=== PATIENT | female | born 1955 | race Two or more races ===

== ENCOUNTER 2016-06-23 09:14 | Outpatient (CLI) | payer MEDICARE, OTHER | END 2016-06-23 23:59 | disposition home health service (06) | LOC: WOU 09:14 | PROVIDERS: ATTEND Surgery | PROC: 0KBT0ZZ Excision of Left Lower Leg Muscle, Open Approach (ICD-10-PCS; principal; 2016-06-23) | DX: T79.A22S Traumatic compartment syndrome of left lower extremity, sequela (principal); I82.402 Acute embolism and thrombosis of unspecified deep veins of left lower extremity; V86.99XS Unspecified occupant of other special all-terrain or other off-road motor vehicle injured in nontraffic accident, sequela; Z86.19 Personal history of other infectious and parasitic diseases | CPT/HCPCS: 11043; 11046; A6253; A6402 ==

== ENCOUNTER 2016-06-30 14:04 | Outpatient (CLI) | payer MEDICARE, OTHER ==
[2016-06-30] MEDS ORDERED: CELLULOSE,OXIDIZED 1 EA PACK MC ONE (15:30)
== END 2016-06-30 23:59 | disposition home health service (06) ==
LOC: WOU 14:04
PROVIDERS: ATTEND Surgery
DX: T79.A22S Traumatic compartment syndrome of left lower extremity, sequela (principal); T81.89XA Other complications of procedures, not elsewhere classified, initial encounter; V86.99XS Unspecified occupant of other special all-terrain or other off-road motor vehicle injured in nontraffic accident, sequela; Z86.19 Personal history of other infectious and parasitic diseases; I82.402 Acute embolism and thrombosis of unspecified deep veins of left lower extremity; R60.0 Localized edema; M79.89 Other specified soft tissue disorders
CPT/HCPCS: 11043; 11046; A6253; A6402 ×2

== ENCOUNTER 2016-07-07 12:50 | Outpatient (CLI) | payer MEDICARE, OTHER | END 2016-07-07 23:59 | disposition home health service (06) | LOC: WOU 12:50 | PROVIDERS: ATTEND Surgery | DX: T81.89XA Other complications of procedures, not elsewhere classified, initial encounter (principal); T79.A22S Traumatic compartment syndrome of left lower extremity, sequela; V86.99XS Unspecified occupant of other special all-terrain or other off-road motor vehicle injured in nontraffic accident, sequela; Z86.19 Personal history of other infectious and parasitic diseases; I82.402 Acute embolism and thrombosis of unspecified deep veins of left lower extremity; R60.0 Localized edema; M79.89 Other specified soft tissue disorders; R05 Cough; T46.5X5A Adverse effect of other antihypertensive drugs, initial encounter; Y92.009 Unspecified place in unspecified non-institutional (private) residence as the place of occurrence of the external cause; I10 Essential (primary) hypertension | CPT/HCPCS: 11043; 11046; 97606; A6402; J3490 ==

== ENCOUNTER 2016-07-08 14:16 | Outpatient (CLI) | payer MEDICARE, OTHER | END 2016-07-08 23:59 | disposition home or self-care (01) | LOC: RAD 14:16 | PROVIDERS: ATTEND Surgery | DX: S81.802A Unspecified open wound, left lower leg, initial encounter (principal); X58.XXXA Exposure to other specified factors, initial encounter; Y93.89 Activity, other specified; Y92.89 Other specified places as the place of occurrence of the external cause; Y99.8 Other external cause status; I10 Essential (primary) hypertension; R05 Cough | CPT/HCPCS: 71020-TC ==

== ENCOUNTER 2016-07-13 12:36 | Outpatient (CLI) | payer MEDICARE, OTHER ==
[2016-07-13 13:07] LABS: BASOPHILS % (AUTO) 0.8 % (0.0-2.0); DIFF TOTAL % 100 %; EOSINOPHILS # (AUTO) 0.1 /CMM (0.0-0.7); EOSINOPHILS % (AUTO) 1.2 % (0.0-6.0); HEMATOCRIT 32 % (33-45); HEMOGLOBIN 10.7 g/dL (11.5-14.8); MEAN CORPUSCULAR HEMOGLOBIN 30 PG (26.0-33.0); MEAN CORPUSCULAR HGB CONC 33 g/dl (31.0-36.0); MEAN CORPUSCULAR VOLUME 92 fL (82-100); MONOCYTES # (AUTO) 0.7 /CMM (0.1-1.30); MONOCYTES % (AUTO) 14.4 % (2.0-12.0); NEUTROPHILS # (AUTO) 3.1 /CMM (1.8-8.9); NEUTROPHILS % (AUTO) 62.6 % (43.0-81.0); PLATELET COUNT (AUTO) 365 /CMM (150-450); RED BLOOD CELL COUNT(AUTO) 3.52 MIL/uL (4.0-5.2)
[2016-07-13 13:33] LABS: INR 1.21 (0.87-1.13); PROTHROMBIN TIME 13.1 SECS (9.5-12.7)
[2016-07-14] MEDS ORDERED: BACITRACIN ZINC OINT (15 GM) 15 GM TUBE TP ONE (09:11)
[2016-07-14] MEDS ORDERED: HYDR-3326 PO (11:30)
[2016-07-14] MEDS ORDERED: DULO60CA45 PO (11:30)
[2016-07-14] MEDS ORDERED: GABA-534 PO (11:30)
[2016-07-14] MEDS ORDERED: PRAZ1CAP5 PO (11:30)
[2016-07-14] MEDS ORDERED: RIVA10TA PO (11:30)
[2016-07-14] MEDS ORDERED: AMLO5TAB2 PO (11:30)
== END 2016-07-13 23:59 | disposition home or self-care (01) ==
LOC: LAB 12:36
PROVIDERS: ATTEND Surgery
DX: Z01.818 Encounter for other preprocedural examination (principal)
CPT/HCPCS: 36415; 85025-TC; 85730-TC

== ENCOUNTER 2016-07-13 13:03 | Outpatient (CLI) | payer MEDICARE, OTHER ==
[2016-07-14] MEDS ORDERED: PRAZ1CAP5 PO (11:30)
[2016-07-14] MEDS ORDERED: GABA-534 PO (11:30)
[2016-07-14] MEDS ORDERED: AMLO5TAB2 PO (11:30)
[2016-07-14] MEDS ORDERED: DULO60CA45 PO (11:30)
[2016-07-14] MEDS ORDERED: HYDR-3326 PO (11:30)
[2016-07-14] MEDS ORDERED: RIVA10TA PO (11:30)
== END 2016-07-13 23:59 | disposition home health service (06) ==
LOC: WOU 13:03
PROVIDERS: ATTEND Surgery
DX: T79.A22D Traumatic compartment syndrome of left lower extremity, subsequent encounter (principal); I82.4Z2 Acute embolism and thrombosis of unspecified deep veins of left distal lower extremity; Z86.19 Personal history of other infectious and parasitic diseases; T85.618A Breakdown (mechanical) of other specified internal prosthetic devices, implants and grafts, initial encounter; M79.662 Pain in left lower leg; I96 Gangrene, not elsewhere classified
CPT/HCPCS: 11043; A6253; A6402

== ENCOUNTER 2016-07-14 05:46 | Inpatient (IN) | payer MEDICARE, OTHER ==
[2016-07-14] MEDS ORDERED: MINERAL OIL 10 ML VIAL MC ONE (08:10)
[2016-07-14] MEDS ORDERED: LIDOCAINE HCL/PF 1% 30 ML SDV ONE (08:10)
[2016-07-14] MEDS ORDERED: FENTANYL PF 100MCG/2ML AMPUL ONE (08:11)
[2016-07-14] MEDS ORDERED: MIDAZOLAM HCL 2 MG/2ML VIAL ONE (08:12)
[2016-07-14] MEDS ORDERED: POVIDONE-IODINE OINT 28.4 GM TUBE ONE (08:55)
[2016-07-14] MEDS ORDERED: BUPIVACAINE MPF 0.5% W/EPI INJ 30 ML VIAL ONE (09:12)
[2016-07-14] MEDS ORDERED: GABA-534 PO (11:30)
[2016-07-14] MEDS ORDERED: RIVA10TA PO (11:30)
[2016-07-14] MEDS ORDERED: AMLO5TAB2 PO (11:30)
[2016-07-14] MEDS ORDERED: HYDR-3326 PO (11:30)
[2016-07-14] MEDS ORDERED: DULO60CA45 PO (11:30)
[2016-07-14] MEDS ORDERED: PRAZ1CAP5 PO (11:30)
== END 2016-07-14 12:04 | disposition home or self-care (01) | DRG 941 ==
LOC: DS 05:46 → MEDSG1 05:48
PROVIDERS: ADMIT Surgery; ATTEND Internal Medicine
PROC: 0HRLX74 Replacement of Left Lower Leg Skin with Autologous Tissue Substitute, Partial Thickness, External Approach (ICD-10-PCS; 2016-07-14)
PROC: 0HQLXZZ Repair Left Lower Leg Skin, External Approach (ICD-10-PCS; 2016-07-14)
PROC: 0KBT0ZZ Excision of Left Lower Leg Muscle, Open Approach (ICD-10-PCS; principal; 2016-07-14 08:36)
DX: Z48.1 Encounter for planned postprocedural wound closure (principal); S87.82XD Crushing injury of left lower leg, subsequent encounter; X58.XXXD Exposure to other specified factors, subsequent encounter
CPT/HCPCS: A6209; A6402; J2250; J3010; J3490; Z7610

== ENCOUNTER 2016-07-21 13:49 | Outpatient (CLI) | payer MEDICARE, OTHER ==
[~2016-07-21 13:49] MED LIST: AMLO5TAB2 PO; DULO60CA45 PO; GABA-534 PO; HYDR-3326 PO; PRAZ1CAP5 PO; RIVA10TA PO
== END 2016-07-21 23:59 | disposition home health service (06) ==
LOC: WOU 13:49
PROVIDERS: ATTEND Surgery
DX: Z48.817 Encounter for surgical aftercare following surgery on the skin and subcutaneous tissue (principal); R05 Cough; T46.5X5D Adverse effect of other antihypertensive drugs, subsequent encounter; I10 Essential (primary) hypertension; Z86.19 Personal history of other infectious and parasitic diseases; I82.502 Chronic embolism and thrombosis of unspecified deep veins of left lower extremity; Z79.899 Other long term (current) drug therapy
CPT/HCPCS: A6209; A6402; G0463

== ENCOUNTER 2016-07-28 13:24 | Outpatient (CLI) | payer MEDICARE, OTHER | END 2016-07-28 23:59 | disposition home health service (06) | DX: Z48.817 Encounter for surgical aftercare following surgery on the skin and subcutaneous tissue (principal); L03.116 Cellulitis of left lower limb; I82.5Z2 Chronic embolism and thrombosis of unspecified deep veins of left distal lower extremity; Z79.02 Long term (current) use of antithrombotics/antiplatelets; Z86.19 Personal history of other infectious and parasitic diseases | CPT/HCPCS: A6209; A6402; G0463 ==

== ENCOUNTER 2016-08-04 14:56 | Outpatient (CLI) | payer MEDICARE, OTHER | END 2016-08-04 23:59 | disposition home health service (06) | LOC: WOU 14:56 | PROVIDERS: ATTEND Surgery | DX: T81.31XA Disruption of external operation (surgical) wound, not elsewhere classified, initial encounter (principal); L03.116 Cellulitis of left lower limb; I82.5Z2 Chronic embolism and thrombosis of unspecified deep veins of left distal lower extremity; Z79.02 Long term (current) use of antithrombotics/antiplatelets; Z86.19 Personal history of other infectious and parasitic diseases | CPT/HCPCS: 11042; A6209 ×2; A6402 ==

== ENCOUNTER 2016-08-11 14:24 | Outpatient (CLI) | payer MEDICARE, OTHER | END 2016-08-11 23:59 | disposition home or self-care (01) | LOC: WOU 14:24 | PROVIDERS: ATTEND Surgery | DX: T81.31XA Disruption of external operation (surgical) wound, not elsewhere classified, initial encounter (principal); L03.116 Cellulitis of left lower limb; I82.5Z2 Chronic embolism and thrombosis of unspecified deep veins of left distal lower extremity; Z79.02 Long term (current) use of antithrombotics/antiplatelets; Z86.19 Personal history of other infectious and parasitic diseases; T14.90 Injury, unspecified; V00-Y99 External causes of morbidity | CPT/HCPCS: 11042; A6209; A6402 ==

== ENCOUNTER 2016-08-18 13:15 | Outpatient (CLI) | payer MEDICARE, OTHER | END 2016-08-18 23:59 | disposition home or self-care (01) | LOC: WOU 13:15 | PROVIDERS: ATTEND Surgery | DX: T81.31XA Disruption of external operation (surgical) wound, not elsewhere classified, initial encounter (principal); I82.5Z2 Chronic embolism and thrombosis of unspecified deep veins of left distal lower extremity; Z79.02 Long term (current) use of antithrombotics/antiplatelets; Z86.19 Personal history of other infectious and parasitic diseases; T14.90 Injury, unspecified; V00-Y99 External causes of morbidity; I10 Essential (primary) hypertension | CPT/HCPCS: 11043; A6209; A6402 ==

== ENCOUNTER 2016-09-08 13:38 | Outpatient (CLI) | payer MEDICARE, OTHER | END 2016-09-08 23:59 | disposition home or self-care (01) | LOC: WOU 13:38 | PROVIDERS: ATTEND Surgery | DX: T81.31XD Disruption of external operation (surgical) wound, not elsewhere classified, subsequent encounter (principal); I82.502 Chronic embolism and thrombosis of unspecified deep veins of left lower extremity; Z79.02 Long term (current) use of antithrombotics/antiplatelets; R52 Pain, unspecified; Z86.19 Personal history of other infectious and parasitic diseases | CPT/HCPCS: G0463 ==

== ENCOUNTER 2017-08-16 05:37 | Inpatient (IN) | payer MEDICARE, OTHER ==
[~2017-08-16] VITALS: Ht 170.2 cm; Wt 90.7 kg
[~2017-08-16 05:37] MED LIST changes: -HYDR-3326 PO; +HYDR-3974 PO
[2017-08-16] MEDS ORDERED: oxyCODONE HCL SR 10MG TAB.SR.12H PO ONE (07:56)
[2017-08-16] MEDS ORDERED: CELECOXIB 100 MG CAPSULE ONE (07:56)
[2017-08-16] MEDS ORDERED: CEFAZOLIN SODIUM/DEXTROSE,ISO 50 ML IV ONE (07:56)
[2017-08-16] MEDS ORDERED: ACETAMINOPHEN 325 MG TABLET ONE (07:57)
[2017-08-16] MEDS ORDERED: MIDAZOLAM HCL 2 MG/2ML VIAL ONE (08:33)
[2017-08-16] MEDS ORDERED: MORPHINE SULFATE/PF 10 MG/10ML (1MG/ML) AMPUL ONE (08:34)
[2017-08-16] MEDS ORDERED: SCOPOLAMINE HBR 1 EA PATCH.TD72 TD ONE (09:07)
[2017-08-16] MEDS ORDERED: TRANEXAMIC ACID 3,000 MG in SODIUM CHLORIDE IRRIG SOLUTION 70 ML IR ONE (10:00)
--- NOTE | 2017-08-16 11:20 | NUR ---
MATY NOTES RR 18 EVEN AND UNLABORED, NO ACUTE DISTRESS NOTED Addendum: 08/16/17 at 1155 by MARY PERALTA RN Amended: Links added. Addendum: 08/16/17 at 1155 by MARY PERALTA RN RN NOTES PT DENIES ANY PAIN, AWAKE ALERT AND VERBALLY RESPONSIVE, ABLE TO MAKE NEEDS KNOWN
--- NOTE | 2017-08-16 11:20 | NUR ---
RN OPENING NOTES PATIENT IN BED, AWAKE ALERT AND VERBALLY RESPONSIVE ABLE TO MAKE NEEDS KNOWN, NO SOB NOTED, RESPIRATIONS EVEN AND UNLABORED, IN NO ACUTE DISTRESS. IV ACCESS PATENT AND INTACT NO REDNESS OR INFILTRATION NOTED. BED IN LOW POSITION, LOCKED IN PLACE. AND [facility] NURSE AWARE PT IS ON UNIT, TELEMETRY STATUS PER ORDERS, WILL CONTINUE TO MONITOR AND ASSIST WITH ADMISSION ORDERS
[2017-08-16] MEDS ORDERED: HYDROCODONE/APAP 5/325MG 1 EACH TABLET PO PRN ×2 (12:00→17:30)
[2017-08-16] MEDS ORDERED: MORPHINE SULFATE INJ 4 MG/ML DISP.SYRIN IV PRN (12:00)
[2017-08-16] MEDS ORDERED: DULCOLAX 10 MG/SUPP.RECT RC PRN (12:00)
[2017-08-16] MEDS ORDERED: COLACE 250 MG CAPSULE PO PRN (12:00)
[2017-08-16] MEDS ORDERED: SENOKOT 8.6 MG TABLET PO PRN (12:00)
[2017-08-16] MEDS ORDERED: NALOXONE HCL 0.4 MG/ML AMPUL IV PRN (12:00)
[2017-08-16] MEDS ORDERED: TYLENOL 650 MG TABLET PO PRN (12:00)
[2017-08-16] MEDS ORDERED: AMBIEN 5 MG TABLET PO PRN (12:00)
[2017-08-16] MEDS ORDERED: ZOFRAN 4mg/2ML IV PRN (12:00)
[2017-08-16] MEDS ORDERED: diphenhydrAMINE HCL 50 MG/ML VIAL IV PRN (12:00)
[2017-08-16] MEDS ORDERED: ROPI1TAB2 PO (12:47)
[2017-08-16] MEDS ORDERED: ATEN25TA PO (12:47)
[2017-08-16] MEDS ORDERED: ARIP5TAB10 PO (12:47)
[2017-08-16] MEDS ORDERED: TRAZ-144 PO (12:47)
[2017-08-16] MEDS ORDERED: BACITRACIN 50000 UNITS/VIAL ONE (13:03)
--- NOTE | 2017-08-16 13:20 | NUR ---
MATY NOTES RR 20 NO RESPIRATORY DISTRESS NOTED, WILL CONTINUE TO MONITOR Addendum: 08/16/17 at 1407 by MARY PERALTA RN Amended: Links added.
[2017-08-16] MEDS ORDERED: ZOLPIDEM TARTRATE 5 MG TABLET PO PRN (15:00)
[2017-08-16] MEDS ORDERED: MAG HYDROX/AL HYDROX/SIMETH 30 ML UDC PO PRN (15:00)
[2017-08-16] MEDS ORDERED: ONDANSETRON HCL/PF 4 MG/2 ML VIAL IVP PRN (15:00)
[2017-08-16] MEDS ORDERED: MAGNESIUM HYDROXIDE 30 ML UDC PO PRN (15:00)
[2017-08-16] MEDS ORDERED: ACETAMINOPHEN 325 MG TABLET PO PRN (15:00)
[2017-08-16] MEDS ORDERED: Z GUARD REMEDY 2 OZ OINT TP PRN (15:00)
--- NOTE | 2017-08-16 15:20 | NUR ---
MATY NOTES RR 20M NO RESPIRATORY DISTRESS NOTED Addendum: 08/16/17 at 1541 by MARY PERALTA RN Amended: Links added.
--- NOTE | 2017-08-16 15:40 | NUR ---
MATY NOTES PT DENIES ANY PAIN AT THIS TIME, REFUSES ANY PAIN MEDICATION Addendum: 08/16/17 at 1541 by MARY PERALTA RN Amended: Links added.
[2017-08-16 16:00] VITALS: BP 100/61
--- NOTE | 2017-08-16 16:20 | NUR ---
MATY NOTES RR NOTED AT 18 NO RESPIRATORY DISTRESS NOTED, WILL CONTINUE TO MONITOR Addendum: 08/16/17 at 1625 by MARY PERALTA RN Amended: Links added.
--- NOTE | 2017-08-16 17:20 | NUR ---
MATY NOTES RR 18 NO RESPIRATORY DISTRESS NOTED Addendum: 08/16/17 at 1822 by MARY PERALTA RN Amended: Links added.
[2017-08-16] MEDS: RIVAROXABAN 10 MG TABLET PO SCH (17:24)
[2017-08-16] MEDS: IV LR 1000 ML 1,000 ML IV PRN (17:25)
--- NOTE | 2017-08-16 18:20 | NUR ---
RN NOTES PATIENT AWAKE ALERT AND VERBALLY RESPONSIVE, DENIES ANY PAIN OR DISCOMFORT AT THIS TIME Addendum: 08/16/17 at 1823 by MARY PERALTA RN Amended: Links added.
[2017-08-16] MEDS: ANCEF 1 G in IV D5W 50 ML IV SCH (18:32)
--- NOTE | 2017-08-16 19:20 | NUR ---
RN NOTES RR 20 NO RESPIRATORY DISTRESS NOTED, DENIES ANY PAIN OR DISCOMFORT, WILL CONTINUE TO MONITOR Addendum: 08/16/17 at 1929 by MARY PERALTA RN Amended: Links added.
--- NOTE | 2017-08-16 19:36 | NUR ---
RN CLOSING NOTES PATIENT IN BED, AWAKE ALERT AND VERBALLY RESPONSIVE ABLE TO MAKE NEEDS KNOWN, NO SOB NOTED, RESPIRATIONS EVEN AND UNLABORED, IN NO ACUTE DISTRESS. IV ACCESS PATENT AND INTACT NO REDNESS OR INFILTRATION NOTED. BED IN LOW POSITION, LOCKED IN PLACE. KEPT CLEAN DRY AND COMFORTABLE CALL LIGHT WITHIN EASY REACH, ENDORSED TO NEXT SHIFT FOR CONTINUITY OF CARE
--- NOTE | 2017-08-16 19:45 | NUR ---
RN OPENING NOTES RECEIVED REPORT FROM [facility] MATY HERNANDEZ. FOUND Pt AWAKE IN BED, READING A BOOK. NO S/S OF ACUTE DISTRESS OR SOB NOTED. NO C/O PAIN AT THIS TIME. Pt IS A/OX4, VERBAL, ABLE TO MAKE NEEDS KNOWN. ON TELE MONITOR. RAO CATHETER IN PLACE, DRAINING WELL. SURGICAL DRESSING ON LHIP INTACT, NO BLEEDING NOTED. IV ACCESS ON RWRIST#18G. SAFETY MEASURES IN PLACE. BED LOW, LOCKED, HOB ELEVATED, SIDE RAILS UP, CALL LIGHT AND BEDSIDE TABLE WITHIN REACH. WILL CONTINUE TO MONITOR PT THROUGHOUT THE NIGHT.
[2017-08-16 20:00] VITALS: BP 126/71
--- NOTE | 2017-08-16 21:30 | NUR ---
RN NOTES Pt WILL BE MOVING TO A DIFFERENT ROOM DUE TO Pt IN 315-2 SCREAMING TOO LOUD. Pt WILL BE MOVED FROM 315-2 TO 323-1.
[2017-08-16] MEDS ORDERED: GABAPENTIN 300 MG CAPSULE PO SCH (22:00)
[2017-08-16] MEDS: TRAZODONE 50 MG TABLET PO SCH (22:23)
--- NOTE | 2017-08-16 23:00 | NUR ---
RN NOTES IV ON RWRIST WAS SWELLING AND RED. NEW IV ACCESS STARTED ON LWRIST #24G. IV ON RWRIST WAS REMOVED COVERED AREA WITH GAUZE AND TAPE. NO BLEEDING NOTED.
[2017-08-17] VITALS: BP 122/70
[2017-08-17] MEDS: ANCEF 1 G in IV D5W 50 ML IV SCH (01:59)
[2017-08-17] MEDS: diphenhydrAMINE HCL 25 MG CAPSULE PO PRN (02:08)
[2017-08-17 04:00] VITALS: BP 122/70
[2017-08-17 06:32] LABS: BASOPHILS % (AUTO) 0.1 % (0.0-2.0); EOSINOPHILS % (AUTO) 0.1 % (0.0-6.0); HEMATOCRIT 28 % (33-45); HEMOGLOBIN 9.8 g/dL (11.5-14.8); LYMPHOCYTES # (AUTO) 1.2 /CMM (0.8-4.8); LYMPHOCYTES % (AUTO) 12.3 % (20.0-44.0); MEAN CORPUSCULAR HEMOGLOBIN 32 PG (26.0-33.0); MEAN CORPUSCULAR HGB CONC 35 g/dl (31.0-36.0); MEAN CORPUSCULAR VOLUME 93 fL (82-100); MONOCYTES # (AUTO) 0.8 /CMM (0.1-1.30); NEUTROPHILS # (AUTO) 8.1 /CMM (1.8-8.9); NEUTROPHILS % (AUTO) 79.5 % (43.0-81.0); PLATELET COUNT (AUTO) 192 /CMM (150-450); RDW COEFFICIENT OF VARIATION 13.1 (11.5-15.0); RED BLOOD CELL COUNT(AUTO) 3.06 MIL/uL (4.0-5.2); WHITE BLOOD COUNT (AUTO) 10.1 K/uL (4.3-11.0)
[2017-08-17 06:35] LABS: CALCIUM, SERUM 8.3 mg/dL (8.5-10.1); CREATININE 0.7 mg/dL (0.6-1.3); MAGNESIUM 1.9 mg/dL (1.8-2.4); PHOSPHORUS 3.4 mg/dL (2.5-4.9); POTASSIUM 3.2 mmol/L (3.5-5.1)
--- NOTE | 2017-08-17 06:39 | NUR ---
RN CLOSING NOTES NO SIGNIFICANT CHANGES IN Pt's CONDITION. Pt REMAINS IN STABLE CONDITION AT THIS TIME. ALL NEEDS MET AND ATTENDED TO. SAFETY MEASURES IN PLACE. TELE READING SR 89 - ST 105. BED LOW, LOCKED, SIDE RAILS UP, CALL LIGHT AND BEDSIDE TABLE WITHIN REACH. WILL ENDORSE TO DAYSHIFT RN FOR Pt's KOURTNEY.
--- NOTE | 2017-08-17 07:53 | NUR ---
ANTIQUER: INITIAL NOTE RECEIVED PT A/OX4. TELE MONITORING AT SR AT 89. NO DISTRESS NOTED. NO SOB NOTED. NO PAIN NOTED. RAO CATH IN PLACE AND DRAINING. TO BE D/C TODAY ONE DAY POST OP. L HIP SURGERY SITE. WBAT. ON REGULAR DIET. L WRIST #22G RUNNING LR AT 100ML/.HR. SITE CLEAR AND PATENT. RESTING COMFORTABLY IN BED. CALL LIGHT WITHIN REACH.
[2017-08-17 08:00] VITALS: BP 124/67
[2017-08-17] MEDS: IV LR 1000 ML 1,000 ML IV PRN (08:54)
[2017-08-17] MEDS: DULOXETINE HCL 30 MG CAPSULE.DR PO SCH ×2 (08:54→16:37)
[2017-08-17] MEDS: ATENOLOL 25 MG TABLET PO SCH (08:55)
[2017-08-17] MEDS: AMLODIPINE BESYLATE 5 MG TABLET PO SCH (08:55)
[2017-08-17] MEDS: ARIPIPRAZOLE 5 MG TABLET PO SCH (08:55)
[2017-08-17] MEDS: GABAPENTIN 300 MG CAPSULE PO SCH ×2 (08:55→16:37)
[2017-08-17] MEDS: DOCUSATE SODIUM 100 MG CAPSULE PO SCH ×2 (08:55→16:37)
[2017-08-17] MEDS ORDERED: TRAZODONE 50 MG TABLET PO SCH ×2 (09:00)
--- NOTE | 2017-08-17 09:55 | NUR ---
RAO CATH D/C PER MD ORDER TO REMOVE 1 DAY POST OP. OUTPUT 900ML.
[2017-08-17] MEDS: POTASSIUM CHLORIDE 20 MEQ TAB.PRT.SR PO SCH ×2 (11:42→12:58)
[2017-08-17] MEDS ORDERED: MORPHINE SULFATE INJ 4 MG/ML DISP.SYRIN IV PRN (12:00)
--- NOTE | 2017-08-17 15:20 | NUR ---
PAIN ASSESSMENT DONE. NO PAIN NOTED.
[2017-08-17 16:00] VITALS: BP 122/67
[2017-08-17] MEDS: RIVAROXABAN 10 MG TABLET PO SCH (16:45)
--- NOTE | 2017-08-17 18:10 | NUR ---
MS RN: CLOSING NOTE PT TOOK ALL MEDICATIONS ON TIME. NO ADVERSE REACTIONS NOTED. NO SOB NOTED. NO PAIN NOTED. RAO CATH REMOVED DUE TO MD ORDER. OUTPUT 900ML. NO URINE RETENTION NOTED. ABLE TO USE BSC AND URINATE. WBAT. L HIP SX SITE. DRESSING TO BE CHANGED ON Monday08/18/17 BY RN. SITE CLEAR. TYLENOL GIVEN FOR FEVER OF 99.9. COOLING MEASURES GIVEN. TEMPERATURE TRENDING DOWN. ON REGULAR DIET. RESTING COMFORTABLY IN BED. CALL LIGHT WITHIN REACH.
--- NOTE | 2017-08-17 19:30 | NUR ---
MS/RN OPENING NOTES PT RECEIVED RESTING COMFORTABLY IN BED. EASILY AROUSABLE TO NAME. A/OX4. CURRENTLY ON ROOM AIR, BREATHING EVEN AND UNLABORED. DENIES SOB OR PAIN AT THIS TIME. LEFT HIP DRESSING C/D/I. IV TO LEFT WRIST PATENT AND INTACT. BED IN LOW/LOCKED POSITION WITH CALL LIGHT IN REACH. SIDE RAILS UPX2. WILL CONTINUE TO MONITOR
[2017-08-17 20:00] VITALS: BP 114/61
[2017-08-17] MEDS: TRAZODONE 50 MG TABLET PO SCH (21:50)
[2017-08-18] MEDS: diphenhydrAMINE HCL 25 MG CAPSULE PO PRN (01:59)
[2017-08-18 07:18] LABS: CALCIUM, SERUM 8.1 mg/dL (8.5-10.1); CREATININE 0.7 mg/dL (0.6-1.3); POTASSIUM 3.7 mmol/L (3.5-5.1)
--- NOTE | 2017-08-18 07:40 | NUR ---
MS RN OPENING NOTE PATIENT IS ALERT AND ORIENTED x4. NO PAIN AT THIS TIME. NO SOB OR DISTRESS NOTED. CALL LIGHT WITHIN REACH. SAFETY MEASURES IMPLEMENTED. ABLE TO COMMUNICATE NEEDS. ON ROOM AIR TOLERATING WELL AT 96%. S/P LEFT HIP ARTHOPLASTY ON 08/16/[address] MOORE, FIRST DRESSING CHANGE TO BE DONE BY RN TODAY. IV INTACT AND PATENT NO REDNESS OR SWELLING NOTED, NO IV FLUIDS RUNNING AT THIS TIME. WILL CONTINUE TO MONITOR THROUGHOUT SHIFT
[2017-08-18 08:00] VITALS: BP 108/69
--- NOTE | 2017-08-18 08:07 | NUR ---
MS/RN CLOSING NOTES PT AWAKE, RESTING COMFORTABLY IN BED. REMAINS ON ROOM AIR, BREATHING EVEN AND UNLABORED. DENIES SOB OR PAIN AT THIS TIME. LEFT HIP DRESSING C/D/I, RN TO CHANGE TODAY. IV TO LEFT WRIST PATENT AND INTACT. ENCOURAGED PT TO USE INCENTIVE SPIROMETER FREQUENTLY. LLE WBAT. NO SIGNIFICANT CHANGES OVERNIGHT. KEPT PT COMFORTABLE DURING SHIFT. ALL NEEDS MET. BED IN LOW/LOCKED POSITION WITH CALL LIGHT IN REACH. SIDE RAILS UPX2. ENDORSED TO DAY SHIFT RN KOURTNEY.
--- NOTE | 2017-08-18 08:30 | NUR ---
MS RN NOTE FIRST DRESSING CHANGED ON LEFT HIP INCISION SITE. CLEANSED WITH NS,PAT DRY AND NEW SURGICAL DRESSING PUT ON. PICTURE TAKEN AND PLACED IN CHART. WILL ENDORSE TO NEXT NURSE
[2017-08-18] MEDS: GABAPENTIN 300 MG CAPSULE PO SCH (08:34)
[2017-08-18] MEDS: DOCUSATE SODIUM 100 MG CAPSULE PO SCH (08:35)
[2017-08-18] MEDS: DULOXETINE HCL 30 MG CAPSULE.DR PO SCH (08:35)
[2017-08-18] MEDS: ARIPIPRAZOLE 5 MG TABLET PO SCH (08:35)
[2017-08-18 09:00] VITALS: BP 108/69
[2017-08-18] MEDS: AMLODIPINE BESYLATE 5 MG TABLET PO SCH (09:00)
[2017-08-18] MEDS: ATENOLOL 25 MG TABLET PO SCH (09:00)
--- NOTE | 2017-08-18 13:30 | NUR ---
MS JUNIOR NET DEVELOPER NOTE PATIENT IS ALERT AND ORIENTED x4. NO PAIN AT THIS TIME. NO SOB OR DISTRESS NOTED. CALL LIGHT WITHIN REACH AT ALL TIMES. SAFETY MEASURES IMPLEMENTED. ABLE TO COMMUNICATE NEEDS. ALL DUE MEDICATIONS GIVEN ORDERED. ALL NURSING CARE NEEDS ATTENDED TO. ON ROOM AIR TOLERATING WELL. S/P LEFT HIP ARTHOPLASTY ON 08/16/[address] MOORE. DRESSING CHANGED ON MY SHIFT. ALL DISCHARGE INSTRUCTIONS GIVEN TO PATIENT/ RN AT [facility], ALL DISCHARGE INSTRUCTIONS RECEIVED BACK. ALL BELONGINGS ACCOUNTED FOR AND TAKEN WITH PATIENT UPON DISCHARGE. REPORT TO GIVEN TO MATY TAVERAS AT [facility] . IV REMOVED, SKIN INTACT. SKIN PICTURE TAKEN AND PLACED IN CHART. LEFT VIA AMBULANCE WITH EMT.
== END 2017-08-18 13:13 | DRG 470 ==
LOC: DS 05:37 → MED 11:26 → TELE 21:21 → MED 08-17 09:24
PROVIDERS: ADMIT Specialist; ATTEND Internal Medicine
PROC: 0SRB0JZ Replacement of Left Hip Joint with Synthetic Substitute, Open Approach (ICD-10-PCS; principal; 2017-08-16 12:50)
DX: M16.12 Unilateral primary osteoarthritis, left hip (principal); E11.51 Type 2 diabetes mellitus with diabetic peripheral angiopathy without gangrene; E66.9 Obesity, unspecified; F41.9 Anxiety disorder, unspecified; E78.5 Hyperlipidemia, unspecified; G89.4 Chronic pain syndrome; I10 Essential (primary) hypertension; K21.9 Gastro-esophageal reflux disease without esophagitis; Z79.01 Long term (current) use of anticoagulants; Z86.718 Personal history of other venous thrombosis and embolism; Z68.31 Body mass index [BMI] 31.0-31.9, adult; Z86.19 Personal history of other infectious and parasitic diseases
CPT/HCPCS: 36415; 80048-TC; 83735-TC; 84100-TC; 85025-TC; 86850-TC; 86921-TC; 87081-TC; 88305-TC; 88311-TC; 97110-TC; 97116-TC; 97530-TC; A4217; A6209; A6402; J0690; J1100; J2250; J2274; J2704; J3490; J7060; J7120; Q0163; Z7610

== ENCOUNTER 2019-08-19 09:00 | Outpatient (CLI) | payer MEDICARE, OTHER ==
[~2019-08-19 09:00] MED LIST changes: -AMLO5TAB2 PO; +AMLO5TAB9 PO; +ARIP5TAB10 PO; +ATEN25TA PO; -PRAZ1CAP5 PO; +ROPI1TAB2 PO; +TRAZ-182 PO
== END 2019-08-19 23:59 | disposition home or self-care (01) ==
LOC: WOU 09:00
PROVIDERS: ATTEND Surgery
DX: Z48.89 Encounter for other specified surgical aftercare (principal); L76.32 Postprocedural hematoma of skin and subcutaneous tissue following other procedure; I82.402 Acute embolism and thrombosis of unspecified deep veins of left lower extremity; Z79.01 Long term (current) use of anticoagulants; R52 Pain, unspecified
CPT/HCPCS: G0463

== ENCOUNTER 2019-11-21 13:10 | Outpatient (CLI) | payer MEDICARE, OTHER | END 2019-11-21 23:59 | disposition home or self-care (01) | LOC: WOU 13:10 | PROVIDERS: ATTEND Surgery | DX: Z48.89 Encounter for other specified surgical aftercare (principal); L90.5 Scar conditions and fibrosis of skin; L76.32 Postprocedural hematoma of skin and subcutaneous tissue following other procedure; I82.402 Acute embolism and thrombosis of unspecified deep veins of left lower extremity; Z79.01 Long term (current) use of anticoagulants; R52 Pain, unspecified | CPT/HCPCS: G0463 ==

== ENCOUNTER 2020-01-16 13:30 | Outpatient (CLI) | payer MEDICARE, OTHER | END 2020-01-16 23:59 | disposition home or self-care (01) | LOC: WOU 13:30 | PROVIDERS: ATTEND Surgery | DX: N64.4 Mastodynia (principal); L90.5 Scar conditions and fibrosis of skin; I82.4Z2 Acute embolism and thrombosis of unspecified deep veins of left distal lower extremity; Z79.01 Long term (current) use of anticoagulants | CPT/HCPCS: G0463 ==

== ENCOUNTER 2020-01-31 14:35 | Outpatient (CLI) | payer MEDICARE, OTHER | END 2020-01-31 23:59 | disposition home or self-care (01) | LOC: MSC 14:35 | PROVIDERS: ATTEND Internal Medicine | DX: M25.569 Pain in unspecified knee (principal); K58.9 Irritable bowel syndrome, unspecified; G47.00 Insomnia, unspecified; I10 Essential (primary) hypertension; F32.9 Major depressive disorder, single episode, unspecified; E23.2 Diabetes insipidus; B19.20 Unspecified viral hepatitis C without hepatic coma; R25.2 Cramp and spasm; M54.2 Cervicalgia; G62.9 Polyneuropathy, unspecified; Z79.899 Other long term (current) drug therapy ==

== ENCOUNTER 2020-02-27 14:00 | Outpatient (CLI) | payer MEDICARE, OTHER | END 2020-02-27 23:59 | disposition home or self-care (01) | LOC: WOU 14:00 | PROVIDERS: ATTEND Surgery | DX: L90.5 Scar conditions and fibrosis of skin (principal); I82.4Z2 Acute embolism and thrombosis of unspecified deep veins of left distal lower extremity; Z79.01 Long term (current) use of anticoagulants; Z98.890 Other specified postprocedural states; R52 Pain, unspecified; Z79.899 Other long term (current) drug therapy | CPT/HCPCS: G0463 ==

== ENCOUNTER 2020-03-16 13:06 | Outpatient (CLI) | payer MEDICARE, OTHER | END 2020-03-16 23:59 | disposition home or self-care (01) | LOC: MSC 13:06 | PROVIDERS: ATTEND Internal Medicine | DX: M19.90 Unspecified osteoarthritis, unspecified site (principal); I10 Essential (primary) hypertension; F32.9 Major depressive disorder, single episode, unspecified; E23.2 Diabetes insipidus; G62.9 Polyneuropathy, unspecified; R25.2 Cramp and spasm; M54.2 Cervicalgia; B19.20 Unspecified viral hepatitis C without hepatic coma; M54.5 Low back pain; Z79.899 Other long term (current) drug therapy ==

== ENCOUNTER 2020-04-24 14:08 | Outpatient (CLI) | payer MEDICARE, OTHER ==
[~2020-04-24 14:08] MED LIST changes: +AMLO-212 PO; -AMLO5TAB9 PO
== END 2020-04-24 23:59 | disposition home or self-care (01) ==
LOC: MSC 14:08
PROVIDERS: ATTEND Internal Medicine
DX: M19.90 Unspecified osteoarthritis, unspecified site (principal); I10 Essential (primary) hypertension; F32.9 Major depressive disorder, single episode, unspecified; G62.9 Polyneuropathy, unspecified; E23.2 Diabetes insipidus; R25.2 Cramp and spasm; M54.2 Cervicalgia; B19.20 Unspecified viral hepatitis C without hepatic coma; M54.5 Low back pain; Z79.899 Other long term (current) drug therapy